=== PATIENT | male | born 1955 | race Caucasian/White ===

== ENCOUNTER 2017-08-15 15:50 | Inpatient (IN) | payer BC ==
[~2017-08-15] VITALS: Ht 175.3 cm; Wt 105.9 kg
[2017-08-15] MEDS ORDERED: MoRPHine SULFATE 4 MG/ML 1 ML CARP\\VIAL IV STA (15:59)
[2017-08-15] MEDS ORDERED: NITROGLYCERIN OINT 2% 1GM PACKET EXT STA (15:59)
[2017-08-15] MEDS ORDERED: ASPI325T39 PO (16:10)
--- NOTE | 2017-08-15 16:31 | DIAGNOSTIC IMAGING REPORT ---
CHEST ONE VIEW PORTABLE CLINICAL HISTORY: chest pain dyspnea COMPARISON STUDY: 08/26/2013 FINDINGS: Minimal interstitial infiltrate left base. Lungs otherwise are clear. Diaphragms are smooth. Calcific angles are sharp. IMPRESSION: Minimal interstitial infiltrate left base. The above report was generated using voice recognition software. It may contain grammatical, syntax or spelling errors. Electronically signed by: Jamal Conner M.D. 08/15/2017 4:29 PM Dictated Date/Time: 08/15/2017 4:29 PM
--- NOTE | 2017-08-15 16:40 | EMERGENCY ROOM VISIT NOTE ---
History First contact with patient: 15:54 Chief Complaint: NECK PAIN Stated Complaint: NECK PAIN History of Present Illness The patient is a 62 year old male who presents to the Emergency Room via private vehicle accompanied by female with complaints of "neck pain". The patient states that he has pain in the left anterior collarbone/clavicular region. He notes that he will get tingling up into the neck. He states that he has had this for about 2 weeks. He states that he changed his pillow and thought that this could be the reason. 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 He is not able to reproduce it with pressing. He feels it is deeper. There is shortness of breath with this. He states that it was very sharp in nature but is now beginning to subside. He rates the overall pain as a 4/10. He did take more than a full strength aspirin today. Review of Systems A complete 10-point Review of Systems was discussed with the patient, with pertinent positives and negatives listed in the History of Present Illness. All remaining Review of Systems questions can be considered negative unless otherwise specified. Past Medical/Surgical History Knee surgery and pneumonia Family History CVA Social History Smoking Status: Never Smoker Patient is employed and lives locally. Current/Historical Medications Scheduled Aspirin (Aspirin Ec), 650 MG PO BID Physical Exam Vital Signs Date Time Temp Pulse Resp B/P (MAP) Pulse Ox O2 Delivery O2 Flow Rate FiO2 08/15/17 19:27 89 18 115/71 94 Room Air 08/15/17 17:14 91 17 134/75 96 Room Air 08/15/17 17:03 86 08/15/17 16:06 96 Room Air 08/15/17 16:06 96 Room Air 08/15/17 15:52 37.1 99 16 185/109 91 Room Air Physical Exam VITAL SIGNS - Vital signs and nursing notes were reviewed. Stable. Hypertensive. Saturating on room air 91%. GENERAL -62-year-old male appearing his stated age who is in no acute distress. Communicates well with provider and answers questions appropriately. SKIN - Without rashes. No petechial rashes. The skin overlying the left clavicle is unremarkable. No evidence of trauma. HEAD - NC/AT. EYES - Sclera anicteric. EARS - No deformities of external structures noted on gross examination bilaterally. NOSE - Midline and without cyanosis. No epistaxis or purulent drainage noted. MOUTH/OROPHARYNX - Without perioral cyanosis. NECK - no reproducible tenderness with palpation of the left clavicle. LUNGS - Chest wall symmetric without accessory muscle use, intercostals retractions, or central cyanosis. Normal vesicular breath sounds CTA B/L. No wheezes, rales, or rhonchi appreciated. CARDIAC - RRR with S1/S2. No murmur, rubs, or gallops appreciated. ABDOMEN - Abdominal contour normal without pulsations or visible masses. BS normoactive all four quadrants. No tenderness, palpable masses, hepatosplenomegaly, or ascites noted. EXTREMITIES - No clubbing or peripheral cyanosis. No pretibial edema present. Medical Decision & Procedures ER Provider Diagnostic Interpretation: CHEST ONE VIEW PORTABLE CLINICAL HISTORY: chest pain dyspnea COMPARISON STUDY: 08/26/2013 FINDINGS: Minimal interstitial infiltrate left base. Lungs otherwise are clear. Diaphragms are smooth. Calcific angles are sharp. IMPRESSION: Minimal interstitial infiltrate left base. The above report was generated using voice recognition software. It may contain grammatical, syntax or spelling errors. Electronically signed by: Jaaml Conner M.D. 08/15/2017 4:29 PM Dictated Date/Time: 08/15/2017 4:29 PM [~ rep ct add3]] (CHEST FOR PE) ANGIO WITH CT DOSE: HISTORY: Chest pain dyspnea TECHNIQUE: Multiaxial CT images of the chest were performed following the intravenous administration of contrast to evaluate the pulmonary arteries. Maximal intensity projection images were also obtained. A dose lowering technique was utilized adhering to the principles of ALARA. COMPARISON STUDY: 09/03/2013 FINDINGS: Minimal atelectatic change thoracic aorta. Mild aneurysmal dilatation a sending thoracic aorta at 4.3 cm. This is unchanged from the prior study. Study is negative for pulmonary embolus. Small fixed lateral hernia with chronic focal herniation of components of the mesenteric fat through the gastric hiatus. This is unchanged in the prior study and is considered a nonacute finding. IMPRESSION: 1. Study is negative for pulmonary embolus. 2. No evidence for focal infiltrate. 3. Small hiatal hernia with chronic changes at the gastroesophageal junction which have been described previously. The above report was generated using voice recognition software. It may contain grammatical, syntax or spelling errors. Electronically signed by: Jamal Conner M.D. 08/15/2017 6:22 PM Dictated Date/Time: 08/15/2017 6:18 PM NECK ANGIO WITH CONTRAST HISTORY: Pain TECHNIQUE: Multiaxial CT images of the neck were performed following the intravenous administration of contrast to evaluate the major cervical vessels. Maximum intensity projection images were also obtained. All measurements were calculated based on NASCET criteria. A dose lowering technique was utilized adhering to the principles of ALARA. COMPARISON STUDY: None. FINDINGS: The aortic arch and proximal great vessels are widely patent. Moderate atherosclerotic change of the carotid bifurcations and proximal internal carotid arteries. This measures narrowing is approximately 40% bilaterally. No significant stenotic process of the vertebral basilar system. His note is made of considerable degenerative change of the cervical spine. IMPRESSION: 1. Moderate atherosclerotic change of the carotid bifurcations with estimated narrowing of 40% bilaterally. 2. No high-grade stenotic process. 3. Negative vertebral basilar system. 4. Considerable degenerative change cervical spine. The above report was generated using voice recognition software. It may contain grammatical, syntax or spelling errors. Electronically signed by: Jamal Conner M.D. 08/15/2017 6:17 PM Dictated Date/Time: 08/15/2017 6:15 PM Laboratory Results 08/15/17 16:45 Red Blood Count 5.87, Mean Corpuscular Volume 90.5, Mean Corpuscular Hemoglobin 31.3, Mean Corpuscular Hemoglobin Concent 34.7, Mean Platelet Volume 10.1, Neutrophils (%) (Auto) 64.2, Lymphocytes (%) (Auto) 25.1, Monocytes (%) (Auto) 6.8, Eosinophils (%) (Auto) 2.8, Basophils (%) (Auto) 0.2, Neutrophils # (Auto) 5.21, Lymphocytes # (Auto) 2.04, Monocytes # (Auto) 0.55, Eosinophils # (Auto) 0.23, Basophils # (Auto) 0.02 08/15/17 16:45 Test 08/15/17 16:45 08/15/17 16:53 08/15/17 18:38 White Blood Count 8.12 K/uL (4.8-10.8) Red Blood Count 5.87 M/uL (4.7-6.1) Hemoglobin 18.4 g/dL (14.0-18.0) Hematocrit 53.1 % (42-52) Mean Corpuscular Volume 90.5 fL (80-100) Mean Corpuscular Hemoglobin 31.3 pg (25-34) Mean Corpuscular Hemoglobin Concent 34.7 g/dl (32-36) Platelet Count 267 K/uL (130-400) Mean Platelet Volume 10.1 fL (7.4-10.4) Neutrophils (%) (Auto) 64.2 % Lymphocytes (%) (Auto) 25.1 % Monocytes (%) (Auto) 6.8 % Eosinophils (%) (Auto) 2.8 % Basophils (%) (Auto) 0.2 % Neutrophils # (Auto) 5.21 K/uL (1.4-6.5) Lymphocytes # (Auto) 2.04 K/uL (1.2-3.4) Monocytes # (Auto) 0.55 K/uL (0.11-0.59) Eosinophils # (Auto) 0.23 K/uL (0-0.5) Basophils # (Auto) 0.02 K/uL (0-0.2) RDW Standard Deviation 44.2 fL (36.4-46.3) RDW Coefficient of Variation 13.4 % (11.5-14.5) Immature Granulocyte % (Auto) 0.9 % Immature Granulocyte # (Auto) 0.07 K/uL (0.00-0.02) Anion Gap 10.0 mmol/L (3-11) Est Creatinine Clear Calc Drug Dose 83.7 ml/min Estimated GFR () 81.7 Estimated GFR (Non- 70.5 BUN/Creatinine Ratio 17.7 (10-20) Calcium Level 9.2 mg/dl (8.5-10.1) Magnesium Level 2.1 mg/dl (1.8-2.4) Total Bilirubin 0.6 mg/dl (0.2-1) Aspartate Amino Transf (AST/SGOT) 26 U/L (15-37) Alanine Aminotransferase (ALT/SGPT) 37 U/L (12-78) Alkaline Phosphatase 70 U/L (45-117) Total Creatine Kinase 132 U/L (39-308) Creatine Kinase MB 1.3 ng/ml (0.5-3.6) Creatine Kinase MB Ratio 1.0 (0-3.0) Total Protein 8.3 gm/dl (6.4-8.2) Albumin 4.4 gm/dl (3.4-5.0) Globulin 3.9 gm/dl (2.5-4.0) Albumin/Globulin Ratio 1.1 (0.9-2) Lyme Disease IgG Antibody NEG (NEG) Lyme Disease IgM Antibody NEG (NEG) Bedside Troponin I 0.040 ng/ml (0-0.045) Prothrombin Time 10.3 SECONDS (9.0-12.0) Prothromb Time International Ratio 1.0 (0.9-1.1) Activated Partial Thromboplast Time 26.9 SECONDS (21.0-31.0) Partial Thromboplastin Ratio 1.0 Troponin I 0.066 ng/ml (0-0.045) Medications Administered Medications (Trade) Dose Ordered Sig/Comfort Route Start Time Stop Time Status Last Admin Dose Admin Morphine Sulfate (MoRPHine SULFATE INJ) 4 mg NOW STAT IV 08/15/17 15:59 08/15/17 16:02 DC 08/15/17 17:14 4 MG Nitroglycerin (Nitroglycerin 2% Oint) 0.5 inch NOW STAT EXT 08/15/17 15:59 08/15/17 16:02 DC 08/15/17 16:45 0.5 INCH Medical Decision Patient was seen and evaluated as above. He presents to us today with left clavicular pain after exerting himself. It was not during exertion but afterwards he developed the pain. EKG NSR, RBBB, ?abnormality in leads v4 and v5. This may be from RBBB. Repeat slightly improved. I question if this is unstable angina. IV access was initiated, and the above workup was performed. Initial troponin came back elevated in the lab, but the POC was normal. Repeat lab (not Point of care) troponin came down slightly but given the patient's amount of subjective risk factors as well as clinical concern he was given nitroglycerin as well as morphine here upon arrival. He had the aspirin prior to coming here. CT scan was performed of the neck and chest given his presentation. This does not reveal any acute process. The chest x-ray initially perhaps reveal pneumonia but I do not believe this to be the case. This was ruled out via the chest CT. CBC reveals no concern leukocytosis. Hemoglobin elevated at 18.4. Coags normal. Metabolic panel reveals no evidence of kidney or liver failure. He does appear to be dehydrated based upon his BUN and creatinine. Lyme negative. Case was discussed with the attending physician. He will be admitted for further evaluation and management. Please refer to further documentation regarding his stay. In evaluation treatment this patient following differential diagnoses were entertained: AK, PE, pericarditis, costochondritis, exertional stable angina, unstable angina, among others. Impression Primary Impression: Chest pain Additional Impression: Unstable angina Departure Information Dispostion Admitted as an inpatient Condition FAIR Referrals Jorge Alberto White M.D. (PCP) Patient Instructions My [facility] Problem Qualifiers
[2017-08-15 17:13] LABS: ALBUMIN 4.4 gm/dl (3.4-5.0); CALCIUM 9.2 mg/dl (8.5-10.1); CREATININE 1.12 mg/dl (0.60-1.40); POTASSIUM 3.6 mmol/L (3.5-5.1)
[2017-08-15 17:16] LABS: BASO % 0.2 %; BASO ABS # 0.02 K/uL (0-0.2); EOS % 2.8 %; EOS ABS # 0.23 K/uL (0-0.5); HEMATOCRIT 53.1 % (42-52); HEMOGLOBIN 18.4 g/dL (14.0-18.0); IG# 0.07 K/uL (0.00-0.02); LYMPH % 25.1 %; LYMPH ABS # 2.04 K/uL (1.2-3.4); MEAN CELL VOLUME 90.5 fL (80-100); MEAN CORPUSCULAR HEMOGLOBIN 31.3 pg (25-34); MEAN CORPUSCULAR HGB CONC 34.7 g/dl (32-36); MEAN PLATELET VOLUME 10.1 fL (7.4-10.4); MONO % 6.8 %; MONO ABS # 0.55 K/uL (0.11-0.59); NEUT % 64.2 %; NEUT ABS # 5.21 K/uL (1.4-6.5); PLATELET COUNT 267 K/uL (130-400); RED CELL DISTRIBUTION WIDTH CV 13.4 % (11.5-14.5); RED CELL DISTRIBUTION WIDTH SD 44.2 fL (36.4-46.3); WHITE BLOOD COUNT 8.12 K/uL (4.8-10.8)
[2017-08-15 17:20] LABS: CKMB 1.3 ng/ml (0.5-3.6); TOTAL PROTEIN 8.3 gm/dl (6.4-8.2)
[2017-08-15] MEDS ORDERED: OPTIRAY 320 IV PRN (17:30)
--- NOTE | 2017-08-15 18:18 | DIAGNOSTIC IMAGING REPORT ---
NECK ANGIO WITH CONTRAST HISTORY: Pain TECHNIQUE: Multiaxial CT images of the neck were performed following the intravenous administration of contrast to evaluate the major cervical vessels. Maximum intensity projection images were also obtained. All measurements were calculated based on NASCET criteria. A dose lowering technique was utilized adhering to the principles of ALARA. COMPARISON STUDY: None. FINDINGS: The aortic arch and proximal great vessels are widely patent. Moderate atherosclerotic change of the carotid bifurcations and proximal internal carotid arteries. This measures narrowing is approximately 40% bilaterally. No significant stenotic process of the vertebral basilar system. His note is made of considerable degenerative change of the cervical spine. IMPRESSION: 1. Moderate atherosclerotic change of the carotid bifurcations with estimated narrowing of 40% bilaterally. 2. No high-grade stenotic process. 3. Negative vertebral basilar system. 4. Considerable degenerative change cervical spine. The above report was generated using voice recognition software. It may contain grammatical, syntax or spelling errors. Electronically signed by: Jamal Conner M.D. 08/15/2017 6:17 PM Dictated Date/Time: 08/15/2017 6:15 PM
--- NOTE | 2017-08-15 18:24 | DIAGNOSTIC IMAGING REPORT ---
(CHEST FOR PE) ANGIO WITH CT DOSE: HISTORY: Chest pain dyspnea TECHNIQUE: Multiaxial CT images of the chest were performed following the intravenous administration of contrast to evaluate the pulmonary arteries. Maximal intensity projection images were also obtained. A dose lowering technique was utilized adhering to the principles of ALARA. COMPARISON STUDY: 09/03/2013 FINDINGS: Minimal atelectatic change thoracic aorta. Mild aneurysmal dilatation a sending thoracic aorta at 4.3 cm. This is unchanged from the prior study. Study is negative for pulmonary embolus. Small fixed lateral hernia with chronic focal herniation of components of the mesenteric fat through the gastric hiatus. This is unchanged in the prior study and is considered a nonacute finding. IMPRESSION: 1. Study is negative for pulmonary embolus. 2. No evidence for focal infiltrate. 3. Small hiatal hernia with chronic changes at the gastroesophageal junction which have been described previously. The above report was generated using voice recognition software. It may contain grammatical, syntax or spelling errors. Electronically signed by: Jamal Conner M.D. 08/15/2017 6:22 PM Dictated Date/Time: 08/15/2017 6:18 PM
[2017-08-15 19:10] LABS: PTT PATIENT 26.9 SECONDS (21.0-31.0)
[2017-08-15] MEDS ORDERED: MAGNESIUM HYDROXIDE SUSP 30 ML UDC PO PRN (20:30)
[2017-08-15] MEDS ORDERED: ONDANSETRON INJ 2 MG/ML 2 ML VIAL IV PRN (20:30)
[2017-08-15] MEDS ORDERED: POLYETHYLENE (MIRALAX) 17 GM PACK PO PRN (20:30)
[2017-08-15] MEDS ORDERED: ACETAMINOPHEN 325 MG TAB PO PRN (20:30)
[2017-08-15] MEDS ORDERED: ALUMINUM/MAGNESIUM/SIMETH (MAALOX MAX) 30 ML UDC PO PRN (20:30)
[2017-08-15] MEDS ORDERED: HEPARIN IV LOW DOSE NO BOLUS SCH (20:39)
--- NOTE | 2017-08-15 21:06 | History and Physical ---
History & Physical Date & Time of Service: Aug 15, 2017 at 20:45 Chief Complaint: Neck Pain Primary Care Physician: Jorge Alberto White M.D. History of Present Illness Source: patient, family This is a 62 yo previously healthy Male presenting with Left sided Chest pain ( underneath clavicle) radiating to Left neck x several weeks. Chest Pain is located beneath the L Clavicle and is intermittent, sharp typically lasting a few minutes, sometimes triggered on exertion, sometimes from rest. 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 The pain lasted a couple hrs.He took aspirin around 3:[address] himself to hospital. He has had no previous similar symptoms or localized injury. Pain is non-pleuritic and also reports SOB, presyncope ( now improved) He also tingling in the left cheek, neck region. Pt denies fevers,nausea, vomiting, diarrhea. He denies h/o HTN, Diabetes, HLD. He chews tobacco. He is no on any medication regularly at home. In the ED, he arrived afebrile normotensive, saturating well on room air.EkG NSR, RBBB . He got morphine, nitro. Chest pain resolved in ED. POC Troponin was .04, serum Troponin was mildly elevated at .066. CXR was unremarkable other than small hiatal hernia. CT Chest neg for PE. CTA neck Moderate atherosclerotic change of the carotid bifurcations with estimated narrowing of 40% bilaterally. Past Medical/Surgical History Unstable Angina Family History Noncontributory Social History Smoking Status: Never Smoker Smokeless Tobacco Use: Yes Alcohol Use: none Drug Use: none Marital Status: Housing status: lives with family Occupational Status: employed Immunizations History of Influenza Vaccine: Unknown History of Tetanus Vaccine?: Unknown History of Pneumococcal: Unknown History of Hepatitis B Vaccine: Unknown Multi-Drug Resistant Organisms History of MDRO: No Allergies Coded Allergies: No Known Allergies (Unverified , 08/15/17) Home Medications Scheduled Aspirin (Aspirin Ec), 650 MG PO BID Review of Systems Constitutional: No fever, No chills, No weakness Respiratory: + shortness of breath, No cough, No wheezing Cardiovascular: + chest pain, No orthopnea, No PND, No edema, No palpitations Abdomen: No pain, No nausea, No vomiting, No diarrhea Musculoskeletal: No swelling, No calf pain Integumentary: No rash, No itch Physical Exam Vital Signs Date Time Temp Pulse Resp B/P (MAP) Pulse Ox O2 Delivery O2 Flow Rate FiO2 08/15/17 19:27 89 18 115/71 94 Room Air 08/15/17 17:14 91 17 134/75 96 Room Air 08/15/17 17:03 86 08/15/17 16:06 96 Room Air 08/15/17 16:06 96 Room Air 08/15/17 15:52 37.1 99 16 185/109 91 Room Air General Appearance: WD/WN, no apparent distress Head: normocephalic, atraumatic Neck: supple, no carotid bruits, trachea midline Respiratory/Chest: chest non-tender, lungs clear, normal breath sounds Cardiovascular: regular rate, rhythm, no edema, no murmur Abdomen/GI: normal bowel sounds, non tender, soft Extremities/Musculoskelatal: no calf tenderness, no pedal edema Neurologic/Psych: alert, normal mood/affect Skin: normal color, warm/dry Diagnostics Laboratory Results Results Past 24 Hours Test 08/15/17 16:45 08/15/17 16:53 08/15/17 18:38 Range/Units White Blood Count 8.12 4.8-10.8 K/uL Red Blood Count 5.87 4.7-6.1 M/uL Hemoglobin 18.4 14.0-18.0 g/dL Hematocrit 53.1 42-52 % Mean Corpuscular Volume 90.5 80-100 fL Mean Corpuscular Hemoglobin 31.3 25-34 pg Mean Corpuscular Hemoglobin Concent 34.7 32-36 g/dl Platelet Count 267 130-400 K/uL Mean Platelet Volume 10.1 7.4-10.4 fL Neutrophils (%) (Auto) 64.2 % Lymphocytes (%) (Auto) 25.1 % Monocytes (%) (Auto) 6.8 % Eosinophils (%) (Auto) 2.8 % Basophils (%) (Auto) 0.2 % Neutrophils # (Auto) 5.21 1.4-6.5 K/uL Lymphocytes # (Auto) 2.04 1.2-3.4 K/uL Monocytes # (Auto) 0.55 0.11-0.59 K/uL Eosinophils # (Auto) 0.23 0-0.5 K/uL Basophils # (Auto) 0.02 0-0.2 K/uL RDW Standard Deviation 44.2 36.4-46.3 fL RDW Coefficient of Variation 13.4 11.5-14.5 % Immature Granulocyte % (Auto) 0.9 % Immature Granulocyte # (Auto) 0.07 0.00-0.02 K/uL Sodium Level 140 136-145 mmol/L Potassium Level 3.6 3.5-5.1 mmol/L Chloride Level 106 98-107 mmol/L Carbon Dioxide Level 24 21-32 mmol/L Anion Gap 10.0 3-11 mmol/L Blood Urea Nitrogen 20 7-18 mg/dl Creatinine 1.12 0.60-1.40 mg/dl Est Creatinine Clear Calc Drug Dose 83.7 ml/min Estimated GFR () 81.7 Estimated GFR (Non- 70.5 BUN/Creatinine Ratio 17.7 10-20 Random Glucose 106 70-99 mg/dl Calcium Level 9.2 8.5-10.1 mg/dl Magnesium Level 2.1 1.8-2.4 mg/dl Total Bilirubin 0.6 0.2-1 mg/dl Aspartate Amino Transf (AST/SGOT) 26 15-37 U/L Alanine Aminotransferase (ALT/SGPT) 37 12-78 U/L Alkaline Phosphatase 70 45-117 U/L Total Creatine Kinase 132 39-308 U/L Creatine Kinase MB 1.3 0.5-3.6 ng/ml Creatine Kinase MB Ratio 1.0 0-3.0 Troponin I 0.083 0.066 0-0.045 ng/ml Total Protein 8.3 6.4-8.2 gm/dl Albumin 4.4 3.4-5.0 gm/dl Globulin 3.9 2.5-4.0 gm/dl Albumin/Globulin Ratio 1.1 0.9-2 Lyme Disease IgG Antibody NEG NEG Lyme Disease IgM Antibody NEG NEG Bedside Troponin I 0.040 0-0.045 ng/ml Prothrombin Time 10.3 9.0-12.0 SECONDS Prothromb Time International Ratio 1.0 0.9-1.1 Activated Partial Thromboplast Time 26.9 21.0-31.0 SECONDS Partial Thromboplastin Ratio 1.0 Diagnostic Radiology Imaging: CHEST ONE VIEW PORTABLE CLINICAL HISTORY: chest pain dyspnea COMPARISON STUDY: 08/26/2013 FINDINGS: Minimal interstitial infiltrate left base. Lungs otherwise are clear. Diaphragms are smooth. Calcific angles are sharp. IMPRESSION: Minimal interstitial infiltrate left base. (CHEST FOR PE) ANGIO WITH CT DOSE: HISTORY: Chest pain dyspnea TECHNIQUE: Multiaxial CT images of the chest were performed following the intravenous administration of contrast to evaluate the pulmonary arteries. Maximal intensity projection images were also obtained. A dose lowering technique was utilized adhering to the principles of ALARA. COMPARISON STUDY: 09/03/2013 FINDINGS: Minimal atelectatic change thoracic aorta. Mild aneurysmal dilatation a sending thoracic aorta at 4.3 cm. This is unchanged from the prior study. Study is negative for pulmonary embolus. Small fixed lateral hernia with chronic focal herniation of components of the mesenteric fat through the gastric hiatus. This is unchanged in the prior study and is considered a nonacute finding. IMPRESSION: 1. Study is negative for pulmonary embolus. 2. No evidence for focal infiltrate. 3. Small hiatal hernia with chronic changes at the gastroesophageal junction which have been described previously. NECK ANGIO WITH CONTRAST HISTORY: Pain TECHNIQUE: Multiaxial CT images of the neck were performed following the intravenous administration of contrast to evaluate the major cervical vessels. Maximum intensity projection images were also obtained. All measurements were calculated based on NASCET criteria. A dose lowering technique was utilized adhering to the principles of ALARA. COMPARISON STUDY: None. FINDINGS: The aortic arch and proximal great vessels are widely patent. Moderate atherosclerotic change of the carotid bifurcations and proximal internal carotid arteries. This measures narrowing is approximately 40% bilaterally. No significant stenotic process of the vertebral basilar system. His note is made of considerable degenerative change of the cervical spine. IMPRESSION: 1. Moderate atherosclerotic change of the carotid bifurcations with estimated narrowing of 40% bilaterally. 2. No high-grade stenotic process. 3. Negative vertebral basilar system. 4. Considerable degenerative change cervical spine. CXR normal EKG NSR RBBB No prior EKG available Impression Assessment and Plan 62 yo previously healthy M w/ h/o of intermittent nonexertional Chest pain ov a several weeks, presenting with acute worsening of Chest pain , cxr unremarkable , mildly elevated Troponin , trending down. Chest Pain: likely secondary to unstable angina * Admit to Telemetry * currently asx, stable * EKG NSR * Initaly Troponins elevated but trending down (.083-->.066) ,Trend Troponins * CXR: Minimal interstitial infiltrate left base. * CTA: Study is negative for pulmonary embolus. * Started IV Heparin Drip * ASA 81 mg daily * Cardiology consulted * NPO after midnight incase of cath in AM Carotid Stenosis * CTA neck: Moderate atherosclerotic change of the carotid bifurcations with estimated narrowing of 40% bilaterally. No high-grade stenotic process. DVT Prophylaxis: Heparin Attending addendum: I have physically seen this patient, have supervised the medical residents activities, and agree with the H&P unless as otherwise noted. Assessment and Plan: Chest pain/Unstable angina-- The patient will be admitted to telemetry for serial cardiac enzymes, cardiac rhythm monitoring and a 2-D echocardiogram with Dopplers. Continue aspirin Start heparin drip standard concentration with bolus per protocol Consult cardiology Nothing by mouth after midnight Carotid stenosis-- 40% narrowing noted bilaterally on CTA Will need serial testing Target LDL cholesterol less than 70 Check a fasting lipid panel and hemoglobin A1c Level of Care Telemetry Advanced Directives Existing Advance Directive: No Existing Living Will: No Existing Power of Automobile Travel Club Counselor: No Resuscitation Status FULL RESUSCITATION VTE Prophylaxis VTE Risk Assessment Done? Y/N: Yes Risk Level: Moderate Given or contraindicated: Other Anticoagulation (IV Heparin Standard), SCD's Social Service Consult None Apply
[2017-08-15] MEDS ORDERED: HEPARIN 25000 UNIT/500 ML D5W ONE (21:24)
[2017-08-15 21:45] VITALS: BP 127/81; PULSE 69; TEMP 36.4; O2SAT 95; Ht 175.3 cm; Wt 105.9 kg
--- NOTE | 2017-08-15 21:45 | NUR ---
A/ID: PT ARRIVED TO UNIT AROUND THIS TIME AND SETTLED BY PRIMARY RN. ASSESSMENT COMPLETED SEE DOCUMENTATION FOR DETAILS. GOWN CHANGED, MONITOR APPLIED, WEIGHT, AND VITAL SIGNS TAKEN. PT ORIENTED TO ROOM, CALL [facility], LIGHTS, BED CONTROLS, AND UNIT ACTIVITIES. GREEN SOCKS INTACT. CODE WORD AND FALL SHEET INTACT. CALL [facility] WITHIN REACH. PENDING DISCHARGE. CARE ASSUMED BY PRIMARY RN.
--- NOTE | 2017-08-15 22:05 | NUR ---
Messaged Dr. Barajas on [id number] requesting a diet order.
--- NOTE | 2017-08-15 22:40 | NUR ---
No response from Dr. Barajas. Paged, orders received. Called drying frame operator for dinner tray. To be NPO at midnight.
[2017-08-15] MEDS ORDERED: INFLUENZA VIRUS QUAD VACCINE 0.5 ML SYR IM. ONE (22:45)
[2017-08-15] MEDS ORDERED: INFLUENZA ADMINISTRATION CHARGE ONE (22:45)
[2017-08-15 23:08] VITALS: BP 123/76; PULSE 72; TEMP 36.9; O2SAT 96
--- NOTE | 2017-08-16 00:01 | NUR ---
a: Reassessment completed at this time. 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 Denies chest pain. Tolerated dinner tray, now NPO for Cardiology consult. Patient denies needs. Refer to EMR for full assessment details. Call zamora and bedside table are within reach. Will continue to monitor patient closely.
[2017-08-16 03:50] LABS: HEMATOCRIT 46.7 % (42-52); HEMOGLOBIN 15.9 g/dL (14.0-18.0); MEAN CELL VOLUME 92.5 fL (80-100); MEAN CORPUSCULAR HEMOGLOBIN 31.5 pg (25-34); MEAN PLATELET VOLUME 9.6 fL (7.4-10.4); PLATELET COUNT 220 K/uL (130-400); RED CELL DISTRIBUTION WIDTH CV 13.9 % (11.5-14.5); RED CELL DISTRIBUTION WIDTH SD 46.4 fL (36.4-46.3); WHITE BLOOD COUNT 9.57 K/uL (4.8-10.8)
[2017-08-16 03:59] LABS: PTT PATIENT 28.7 SECONDS (21.0-31.0)
--- NOTE | 2017-08-16 04:00 | NUR ---
a: Reassessment completed at this time. 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 Patient denies chest pain or shortness of breath. IV Heparin infusing per protocol. Denies any pain. No complaints at present time. Voiding in urinal without complications at this time. Refer to EMR for full assessment details. Call zamora and bedside table are within reach. Will continue to monitor patient closely.
[2017-08-16 04:10] VITALS: BP 128/77; PULSE 70; TEMP 36.6; O2SAT 95
[2017-08-16] MEDS ORDERED: HEPARIN IV BOLUS 4,500 UNIT in SYRINGE 0 ML IV ONE ×3 (04:45→19:45)
[2017-08-16] MEDS: HEPARIN 25,000 UNIT/500ML D5W 500 ML IV PRN ×3 (04:54→20:28)
[2017-08-16 07:39] VITALS: BP 136/75; PULSE 68; TEMP 36.5; O2SAT 96
--- NOTE | 2017-08-16 08:00 | NUR ---
A:id/ pt alert in bed. upset because of NPO status denies further complaints. assessment completed. call zamora in reach will cont to monitor.
[2017-08-16 10:11] LABS: HEMOGLOBIN A1C 5.4 % (4.5-5.6)
--- NOTE | 2017-08-16 10:25 | Cardiology Consultation ---
Cardiology Consultation Date of Consultation: Aug 16, 2017. Requesting Physician: Jenn Reason for Consultation: Chest pain Pt evaluation today including: conversation w/ patient, physical exam, chart review, lab review, review of studies, review of inpatient medication list, conversation w/ attending History of Present Illness Patient is a 62-year-old gentleman without a known history of cardiac disease who has been experiencing episodes of left sternoclavicular pain. Patient states that approximately 2-3 weeks ago he began to have episodes of a sharp stabbing pain which was well localized to the left clavicle close to the sternoclavicular joint. This discomfort was not reliably brought about by any particular activity. Most of the time the discomfort started at rest. The episodes themselves can last several minutes to half an hour. It is occasionally associated with some pain on the left side of the neck as well. It did not appear to be positional. No specific remedy resulted in improvement. Based on the recurrent nature of this symptom the patient contacted the clinic yesterday was advised to go to the emergency room. He cannot recall any particular intervention which relieved his symptom yesterday. Yesterday's episode lasted nearly 1 hour. He does not have associated dyspnea. He has not have associated dizziness although yesterday driving to the emergency room he did feel somewhat lightheaded. He is not aware of any palpitations. He is not describing orthopnea or paroxysmal nocturnal dyspnea. He he is not aware of any lower extremity edema. 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 He has been continuing his usual activity without new symptoms. He does not generally have this symptom of clavicular discomfort with activity. Yesterday he was able work for several hours before returning to his home. The discomfort started at that time, not while active. Past Medical/Surgical History Allergic rhinitis Asthma Hiatal hernia Thoracic aortic aneurysm Past surgical history: Knee surgery Family History No premature coronary disease Social History Smoking Status: Never Smoker History of Alcohol Use: Yes (social) Patient drinks alcohol occasionally. No history of heavy alcohol use. He uses smokeless tobacco. No history of smoking. 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 All Other Systems: Reviewed and Negative Allergies Coded Allergies: No Known Allergies (Unverified , 08/15/17) Medications Current Inpatient Medications Medications (Trade) Dose Ordered Sig/Comfort Route Start Time Stop Time Status Last Admin Dose Admin Ioversol (Optiray 320) 111 ml UD PRN IV 08/15/17 17:30 08/19/17 17:29 Acetaminophen (Tylenol Tab) 650 mg Q4H PRN PO 08/15/17 20:30 09/14/17 20:29 Al Hydrox/Mg Hydrox/Simethicone (Maalox Max Susp) 15 ml Q4H PRN PO 08/15/17 20:30 09/14/17 20:29 Magnesium Hydroxide (Milk Of Magnesia Susp) 30 ml Q12H PRN PO 08/15/17 20:30 09/14/17 20:29 Ondansetron HCl (Zofran Inj) 4 mg Q6H PRN IV 08/15/17 20:30 09/14/17 20:29 Aspirin (Ecotrin Tab) 81 mg QAM PO 08/16/17 09:00 09/15/17 08:59 Polyethylene (Miralax Powder Packet) 17 gm DAILY PRN PO 08/15/17 20:30 09/14/17 20:29 Heparin Sodium/ Dextrose 500 ml @ 23 mls/hr [id number] PRN IV 08/15/17 22:15 09/14/17 22:14 08/16/17 04:54 23 MLS/HR Physical Exam Vital Signs Past 12 Hours Date Time Temp Pulse Resp B/P (MAP) Pulse Ox O2 Delivery O2 Flow Rate FiO2 08/16/17 08:00 Room Air 08/16/17 07:39 36.5 68 18 136/75 (95) 96 Room Air 08/16/17 04:10 36.6 70 18 128/77 (94) 95 Room Air 08/16/17 04:00 Room Air 08/15/17 23:59 Room Air 08/15/17 23:08 36.9 72 18 123/76 (92) 96 Room Air The patient is alert and oriented. Mood and affect appeared normal. He answered all questions appropriately. HEENT: Pupils are equal and reactive to light and accommodation. Extraocular movements are intact. The sclerae are anicteric. Neuro: Cranial nerves intact Neck: Patient's neck is supple. He has palpable carotid pulses bilaterally without bruits on auscultation. There is no evidence of jugular venous distention. The thyroid is not enlarged. Lungs: Clear to auscultation bilaterally. He has good air movement without use of accessory muscles. No rales wheezes or rhonchi. Cardiac: Heart demonstrates a regular rate and rhythm. Normal S1 and S2. No murmurs on examination. Pulses: The patient has palpable radial pulses bilaterally that are equal in intensity Extremities: There was no evidence of hypoperfusion. There is no cyanosis or clubbing. There is no edema. Skin: I did not appreciate any rashes on examination today. Data Laboratory Results: Last 24 Hours Test 08/15/17 16:45 08/15/17 16:53 08/15/17 18:38 08/16/17 03:30 White Blood Count 8.12 K/uL 9.57 K/uL Red Blood Count 5.87 M/uL 5.05 M/uL Hemoglobin 18.4 g/dL 15.9 g/dL Hematocrit 53.1 % 46.7 % Mean Corpuscular Volume 90.5 fL 92.5 fL Mean Corpuscular Hemoglobin 31.3 pg 31.5 pg Mean Corpuscular Hemoglobin Concent 34.7 g/dl 34.0 g/dl Platelet Count 267 K/uL 220 K/uL Mean Platelet Volume 10.1 fL 9.6 fL Neutrophils (%) (Auto) 64.2 % Lymphocytes (%) (Auto) 25.1 % Monocytes (%) (Auto) 6.8 % Eosinophils (%) (Auto) 2.8 % Basophils (%) (Auto) 0.2 % Neutrophils # (Auto) 5.21 K/uL Lymphocytes # (Auto) 2.04 K/uL Monocytes # (Auto) 0.55 K/uL Eosinophils # (Auto) 0.23 K/uL Basophils # (Auto) 0.02 K/uL RDW Standard Deviation 44.2 fL 46.4 fL RDW Coefficient of Variation 13.4 % 13.9 % Immature Granulocyte % (Auto) 0.9 % Immature Granulocyte # (Auto) 0.07 K/uL Sodium Level 140 mmol/L Potassium Level 3.6 mmol/L Chloride Level 106 mmol/L Carbon Dioxide Level 24 mmol/L Anion Gap 10.0 mmol/L Blood Urea Nitrogen 20 mg/dl Creatinine 1.12 mg/dl Est Creatinine Clear Calc Drug Dose 83.7 ml/min Estimated GFR () 81.7 Estimated GFR (Non- 70.5 BUN/Creatinine Ratio 17.7 Random Glucose 106 mg/dl Calcium Level 9.2 mg/dl Magnesium Level 2.1 mg/dl Total Bilirubin 0.6 mg/dl Aspartate Amino Transf (AST/SGOT) 26 U/L Alanine Aminotransferase (ALT/SGPT) 37 U/L Alkaline Phosphatase 70 U/L Total Creatine Kinase 132 U/L Creatine Kinase MB 1.3 ng/ml Creatine Kinase MB Ratio 1.0 Troponin I 0.083 ng/ml 0.066 ng/ml Total Protein 8.3 gm/dl Albumin 4.4 gm/dl Globulin 3.9 gm/dl Albumin/Globulin Ratio 1.1 Lyme Disease IgG Antibody NEG Lyme Disease IgM Antibody NEG Bedside Troponin I 0.040 ng/ml Prothrombin Time 10.3 SECONDS Prothromb Time International Ratio 1.0 Activated Partial Thromboplast Time 26.9 SECONDS 28.7 SECONDS Partial Thromboplastin Ratio 1.0 1.1 Hepatitis C Antibody Screen NEG Test 08/16/17 05:34 Estimated Average Glucose 108 mg/dl Hemoglobin A1c 5.4 % Troponin I 0.067 ng/ml Triglycerides Level 104 mg/dl Cholesterol Level 170 mg/dl HDL Cholesterol 28 mg/dl LDL Cholesterol, Calculated 121 mg/dl VLDL Cholesterol, Calculated 21 mg/dl Cholesterol/HDL Ratio 6.1 Imaging: Chest x-ray was essentially unremarkable. CT PE protocol did not reveal any evidence of pulmonary embolus. Head CTA revealed 40 percent stenosis of the carotids bilaterally. EKG: Normal sinus rhythm with right bundle branch block and left atrial enlargement Telemetry reviewed: No significant arrhythmia Assessment & Plan 1. Atypical chest pain: I would not characterize the patient's symptom as chest pain. It is a very focal discomfort at the sternoclavicular junction on the left side. It does not appear to be reproducible with palpation. Is not associated with any particular movement of the arm or specific activity. There is no significant radiation to the arm or back. He did have some paresthesias involving the left side of the face but these are not reliably associated with the clavicular pain. He can perform a good deal of activity without any symptoms consistent with angina or coronary insufficiency. He has not report chest pain or limiting dyspnea with activity. It is unclear why he has mild elevation in his cardiac biomarkers. He does likely have an element of coronary disease based on his carotid disease and history of coronary calcifications on CT scan performed in 2013. However I do not believe he is likely to have had an acute coronary syndrome recently. His presenting symptoms are clearly not consistent with that diagnosis., I think it is reasonable to continue trending his biomarkers over the course of the evening. Will continue the heparin infusion for the time being. If he has no additional elevations or symptoms we could consider stress testing tomorrow for risk stratification and likely discharged afterwards provided those results are encouraging. 2. Aortic aneurysm: Patient was reported to have dilation of the thoracic aorta in 2013. That time measured 4.2 centimeters. I do not believe they could get an accurate measurement on the CT scan performed last night as it was not gated for the thoracic aorta. This could be followed up in the outpatient setting. 3. Lipids: Patient's lipid profile in addition to his other cardiac risk factors suggest an estimated 10 year risk over 7.5 percent (calculated at 12.4 percent). This would put him in a category of patients would likely benefit from long-term moderate to high intensity statin therapy. I think with his known carotid disease and coronary calcifications he is also a good candidate for statin therapy.
[2017-08-16] MEDS: ASPIRIN 81 MG ECTAB PO SCH (10:35)
--- NOTE | 2017-08-16 10:46 | ECHOCARDIOGRAM REPORT ---
*NOTICE TO RECEIVING [employer] This information is strictly Confidential and protected under [place] law. [place] law prohibits you from making any further disclosure of this information unless further disclosure is expressly permitted by the written consent of the person to whom it pertains or is authorized by law. A general authorization for the release of medical or other information is not sufficient for this purpose. Hospital accepts no responsibility if the information is made available to any other person, INCLUDING THE PATIENT. Interpretation Summary * Name: VASU DIAL Study Date: 08/16/2017 07:48 AM BP: 128/77 mmHg * Patient Location: C.2T\S\S240\S\2 HR: 70 * : 1955 (M/d/yyyy) Gender: Male Height: 68 in * Age: 62 yrs Ethnicity: CA Weight: 240 lb * Ordering Physician: Jnoa Barajas * Referring Physician: Self, Referred * Performed By: Donya Gamez RCS * * Reason For Study: Chest Pain * BSA: 2.2 m2 * -- Conclusions -- * Left ventricular systolic function is normal. * Diastolic dysfunction, Grade II, consistent with elevated left atrial pressure. * The left atrium is mildly dilated. * There is mild mitral annular calcification. * Right ventricular systolic pressure is normal. Procedure Details * A complete two-dimensional transthoracic echocardiogram was performed (2D, M-mode, Doppler and color flow Doppler). Left Ventricle * The left ventricle is normal in size. * There is normal left ventricular wall thickness. * Ejection Fraction = 55-60%. * Left ventricular systolic function is normal. * Diastolic dysfunction, Grade II, consistent with elevated left atrial pressure. * The left ventricular wall motion is normal. Right Ventricle * The right ventricle is grossly normal size. * The right ventricular systolic function is normal. * The right ventricular systolic function is normal as assessed by tricuspid annular plane systolic excursion (TAPSE) (normal >1.5 cm). Atria * The left atrium is mildly dilated. * Right atrial size is normal. Mitral Valve * There is mild mitral annular calcification. * There is no mitral regurgitation noted. Tricuspid Valve * The tricuspid valve is not well visualized, but is grossly normal. * There is trace tricuspid regurgitation. * Right ventricular systolic pressure is normal. Aortic Valve * The aortic valve is normal in structure and function. * The aortic valve is trileaflet. * No hemodynamically significant valvular aortic stenosis. * There is no significant aortic regurgitation. Great Vessels * The aortic root is normal size. Pericardium/Pleural * There is no pericardial effusion. MMode 2D Measurements and Calculations IVSd 1.0 cm IVSs 1.4 cm LVIDd 4.5 cm LVIDs 3.2 cm LVPWd 0.99 cm LVPWs 1.2 cm IVS/LVPW 1.0 FS 28.2 % EDV(Teich) 91.1 ml ESV(Teich) 41.3 ml EF(Teich) 54.6 % EDV(cubed) 89.4 ml ESV(cubed) 33.1 ml EF(cubed) 62.9 % % IVS thick 38.7 % % LVPW thick 24.6 % LV mass(C)d 150.9 grams LV mass(C)dI 68.3 grams/m\S\2 LV mass(C)s 138.4 grams LV mass(C)sI 62.7 grams/m\S\2 SV(Teich) 49.7 ml SI(Teich) 22.5 ml/m\S\2 SV(cubed) 56.3 ml SI(cubed) 25.5 ml/m\S\2 Ao root diam 3.4 cm Ao root area 8.9 cm\S\2 ACS 1.7 cm LA dimension 4.4 cm asc Aorta Diam 4.0 cm LA/Ao 1.3 EDV(MOD-sp4) 119.0 ml ESV(MOD-sp4) 63.0 ml EF(MOD-sp4) 47.1 % EDV(MOD-sp2) 127.0 ml ESV(MOD-sp2) 58.0 ml EF(MOD-sp2) 54.3 % SV(MOD-sp4) 56.0 ml SI(MOD-sp4) 25.4 ml/m\S\2 SV(MOD-sp2) 69.0 ml SI(MOD-sp2) 31.2 ml/m\S\2 Doppler Measurements and Calculations MV E max michelle 92.2 cm/sec MV A max michelle 76.6 cm/sec MV E/A 1.2 MV P1/2t max michelle 100.5 cm/sec MV P1/2t 106.3 msec MVA(P1/2t) 2.1 cm\S\2 MV dec slope 277.1 cm/sec\S\2 MV dec time 0.32 sec Ao V2 max 137.2 cm/sec Ao max PG 7.5 mmHg Ao max PG (full) 1.7 mmHg LV V1 max PG 5.8 mmHg LV V1 max 120.8 cm/sec PA V2 max 83.7 cm/sec PA max PG 2.8 mmHg TR max michelle 163.5 cm/sec
[2017-08-16] MEDS ORDERED: ATORVASTATIN 40 MG TAB PO ONE (10:58)
[2017-08-16 11:06] VITALS: BP 149/80; PULSE 72; TEMP 36.7; O2SAT 91
[2017-08-16 11:36] LABS: PTT PATIENT 36.7 SECONDS (21.0-31.0)
--- NOTE | 2017-08-16 12:14 | NUR ---
pt alert in bed at bedside. reassessed. denies complaints . call zamora in reach will cont to monitor
--- NOTE | 2017-08-16 12:41 | Family Medicine Progress Note ---
Progress Note Date of Service Aug 16, 2017. Subjective Pt evaluation today including: conversation w/ patient, physical exam, chart review, lab review Pain: denies any chest pain currently Voiding: no voiding problems 62-year-old male with significant past medical history presented to the ER with complaints of intermittent, sharp pain underneath his left clavicle which started several weeks ago but had worsened yesterday. Pain is intermittent sometimes at rest and sometimes with exertion. Admitted for cardiac evaluation. States that he feels fine. Denies any pain, shortness of breath, palpitations. Has some paresthesia on the left side of his face which is also intermittent. Denies any numbness, tingling, weakness of any extremities. Denies any fevers, chills, cough. No significant family history of heart disease, no history of hypertension or diabetes but he chews tobacco. Constitutional: No fever, No chills Eyes: No worsening of vision ENT: No hearing loss Respiratory: No cough, No sputum, No wheezing, No shortness of breath Cardiovascular: No chest pain, No orthopnea, No edema Abdomen: No pain, No nausea, No vomiting Musculoskeletal: No joint pain Male : No dysuria, No urinary frequency Neurologic: + problem reported (paresthesias on left side of face which are intermittent) Psychiatric: No depression symptoms Heme: No abnormal bleeding/bruising Medications Current Inpatient Medications Medications (Trade) Dose Ordered Sig/Comfort Route Start Time Stop Time Status Last Admin Dose Admin Ioversol (Optiray 320) 111 ml UD PRN IV 08/15/17 17:30 08/19/17 17:29 Acetaminophen (Tylenol Tab) 650 mg Q4H PRN PO 08/15/17 20:30 09/14/17 20:29 Al Hydrox/Mg Hydrox/Simethicone (Maalox Max Susp) 15 ml Q4H PRN PO 08/15/17 20:30 09/14/17 20:29 Magnesium Hydroxide (Milk Of Magnesia Susp) 30 ml Q12H PRN PO 08/15/17 20:30 09/14/17 20:29 Ondansetron HCl (Zofran Inj) 4 mg Q6H PRN IV 08/15/17 20:30 09/14/17 20:29 Aspirin (Ecotrin Tab) 81 mg QAM PO 08/16/17 09:00 09/15/17 08:59 08/16/17 10:35 81 MG Polyethylene (Miralax Powder Packet) 17 gm DAILY PRN PO 08/15/17 20:30 09/14/17 20:29 Heparin Sodium/ Dextrose 500 ml @ 26 mls/hr [id number] PRN IV 08/15/17 22:15 09/14/17 22:14 08/16/17 04:54 23 MLS/HR Atorvastatin Calcium (Lipitor Tab) 40 mg QAM PO 08/17/17 09:00 09/16/17 08:59 Heparin Sodium (Porcine) 4500 unit/Syringe 4.5 ml @ 10 mls/min NOW ONCE IV 08/16/17 12:30 08/16/17 12:31 Objective Vital Signs Date Time Temp Pulse Resp B/P (MAP) Pulse Ox O2 Delivery O2 Flow Rate FiO2 08/16/17 12:00 Room Air 08/16/17 11:06 36.7 72 18 149/80 (103) 91 2.0 08/16/17 08:00 Room Air 08/16/17 07:39 36.5 68 18 136/75 (95) 96 Room Air 08/16/17 04:10 36.6 70 18 128/77 (94) 95 Room Air 08/16/17 04:00 Room Air 08/15/17 23:59 Room Air 08/15/17 23:08 36.9 72 18 123/76 (92) 96 Room Air 08/15/17 21:45 36.4 69 18 127/81 95 Room Air 08/15/17 21:21 79 18 118/71 95 08/15/17 21:13 70 08/15/17 19:27 89 18 115/71 94 Room Air 08/15/17 17:14 91 17 134/75 96 Room Air 08/15/17 17:03 86 08/15/17 16:06 96 Room Air 08/15/17 16:06 96 Room Air 08/15/17 15:52 37.1 99 16 185/109 91 Room Air Physical Exam General Appearance: WD/WN, no apparent distress Eyes: normal inspection ENT: hearing grossly normal Neck: supple Respiratory/Chest: chest non-tender, lungs clear, normal breath sounds, no respiratory distress Cardiovascular: regular rate, rhythm, no edema Abdomen: normal bowel sounds, non tender, soft Extremities: normal range of motion, non-tender, no pedal edema, no calf tenderness Neurologic/Psychiatric: alert, normal mood/affect, oriented x 3 Laboratory Results 08/16/17 03:30 08/15/17 16:45 Test 08/15/17 16:45 08/15/17 16:53 08/15/17 18:38 08/16/17 03:30 Immature Granulocyte % (Auto) 0.9 % White Blood Count 8.12 K/uL (4.8-10.8) Red Blood Count 5.87 M/uL (4.7-6.1) 5.05 M/uL (4.7-6.1) Hemoglobin 18.4 g/dL (14.0-18.0) Hematocrit 53.1 % (42-52) Mean Corpuscular Volume 90.5 fL (80-100) 92.5 fL (80-100) Mean Corpuscular Hemoglobin 31.3 pg (25-34) 31.5 pg (25-34) Mean Corpuscular Hemoglobin Concent 34.7 g/dl (32-36) 34.0 g/dl (32-36) Platelet Count 267 K/uL (130-400) Mean Platelet Volume 10.1 fL (7.4-10.4) 9.6 fL (7.4-10.4) Neutrophils (%) (Auto) 64.2 % Lymphocytes (%) (Auto) 25.1 % Monocytes (%) (Auto) 6.8 % Eosinophils (%) (Auto) 2.8 % Basophils (%) (Auto) 0.2 % Neutrophils # (Auto) 5.21 K/uL (1.4-6.5) Lymphocytes # (Auto) 2.04 K/uL (1.2-3.4) Monocytes # (Auto) 0.55 K/uL (0.11-0.59) Eosinophils # (Auto) 0.23 K/uL (0-0.5) Basophils # (Auto) 0.02 K/uL (0-0.2) Immature Granulocyte # (Auto) 0.07 K/uL (0.00-0.02) Anion Gap 10.0 mmol/L (3-11) Est Creatinine Clear Calc Drug Dose 83.7 ml/min Estimated GFR () 81.7 Estimated GFR (Non- 70.5 BUN/Creatinine Ratio 17.7 (10-20) Calcium Level 9.2 mg/dl (8.5-10.1) Magnesium Level 2.1 mg/dl (1.8-2.4) Total Bilirubin 0.6 mg/dl (0.2-1) Aspartate Amino Transf (AST/SGOT) 26 U/L (15-37) Alanine Aminotransferase (ALT/SGPT) 37 U/L (12-78) Alkaline Phosphatase 70 U/L (45-117) Total Creatine Kinase 132 U/L (39-308) Creatine Kinase MB 1.3 ng/ml (0.5-3.6) Creatine Kinase MB Ratio 1.0 (0-3.0) Total Protein 8.3 gm/dl (6.4-8.2) Albumin 4.4 gm/dl (3.4-5.0) Globulin 3.9 gm/dl (2.5-4.0) Albumin/Globulin Ratio 1.1 (0.9-2) Lyme Disease IgG Antibody NEG (NEG) Lyme Disease IgM Antibody NEG (NEG) Bedside Troponin I 0.040 ng/ml (0-0.045) Prothrombin Time 10.3 SECONDS (9.0-12.0) Prothromb Time International Ratio 1.0 (0.9-1.1) RDW Standard Deviation 46.4 fL (36.4-46.3) RDW Coefficient of Variation 13.9 % (11.5-14.5) Hepatitis C Antibody Screen NEG (NEG) Test 08/16/17 05:34 08/16/17 11:13 Estimated Average Glucose 108 mg/dl Hemoglobin A1c 5.4 % (4.5-5.6) Triglycerides Level 104 mg/dl (0-150) Cholesterol Level 170 mg/dl (0-200) HDL Cholesterol 28 mg/dl LDL Cholesterol, Calculated 121 mg/dl VLDL Cholesterol, Calculated 21 mg/dl Cholesterol/HDL Ratio 6.1 Activated Partial Thromboplast Time 36.7 SECONDS (21.0-31.0) Partial Thromboplastin Ratio 1.4 Troponin I 0.064 ng/ml (0-0.045) Assessment and Plan 62-year-old male with significant past medical history presented to the ER with complaints of intermittent, sharp pain underneath his left clavicle which started several weeks ago but had worsened yesterday. Pain is intermittent sometimes at rest and sometimes with exertion. Admitted for cardiac evaluation. Precordial chest pain: - Chest x-ray negative, CTA negative for PE. - Troponins trended overnight 0.087-->0.066-->0.067-->0.064 - Echo currently pending - Currently on heparin drip, plan for stress testing tomorrow per cardiology - ASCVD with estimated risk of 17.7%, started on moderate intensity statin- Lipitor 40 mg daily - Continue aspirin 81 mg daily - Lifestyle modifications discussed Moderate bilateral carotid stenosis: - 40% stenosis bilaterally at carotid bifurcations as visualized on CTA - Continue statin Tobacco use: -Counseled about cessation of chewing tobacco, patient would like to try to wean himself. Full code DVT prophylaxis: IV heparin Disposition: Telemetry Resident Physician Supervision Note: I interviewed and examined the patient. Discussed with Dr. Arce and agree with findings and plan as documented in the note. Any exceptions or clarifications are listed here: None Documented By: Fransisco Kilgore had a little bit more neck pain randomly. none since feeling better now vitals noted nad breating unlabored no pallor or icterus EKG noted, troponins noted CP - w slightly elevated troponin and multitude of risks (male, age, tobacco, dyslipidemia) - concern on CAD ---> continue heparin, med management, continue to trend enzymes, start statin. cardiology plan for stress --> cath if positive. certainly if stress negative would still manage for presumed CAD, but would likely simply mean patient doesn't have severe enough disease to benefit from interventions beyond med managemetn and lifestyle. discussed lifestyle as well dyslipid - statin, lifestyle tobacco abuse - cessation DVT proph - anticoagulated otherwise as above Resident Tracking Resident Involvement: Resident Care Provided Care Provided: Adult Hospital Medicine
--- NOTE | 2017-08-16 13:16 | NUR ---
Case Management: Received a discharge planning consult on this pt and I met with him this am. Pt lives with his spouse in a 2 story home. He is completely independent with his care, working and driving. No needs anticipated at this time.
[2017-08-16 15:30] VITALS: BP 152/97; PULSE 73; TEMP 36.5; O2SAT 96
--- NOTE | 2017-08-16 16:00 | NUR ---
A: Vital signs stable, see EMR. SR on diagnostic cardiac sonographer. Patient is on Heparin drip at 26 ml/hr. Patient OOB ad aneesh in room, tolerating well. Denies chest pain, shortness of breath, or dizziness. Call zamora within reach, will continue to monitor.
[2017-08-16 18:53] VITALS: BP 143/90; PULSE 81; TEMP 36.4; O2SAT 94
[2017-08-16 19:29] LABS: PTT PATIENT 38.3 SECONDS (21.0-31.0)
--- NOTE | 2017-08-16 20:00 | NUR ---
a: Full head to toe assessment completed at this time. Patient is alert and oriented x4. Lungs diminished on room air. Denies pain at present. States that sometimes with movement of the left arm, pain represents to the left neck area. Pain then stops when movement of left arm is stopped. SR on monitor. Heparin gtt adjusted per protocol. Denies needs. Refusing SCDs. No edema. Voiding in urinal. No needs are voiced at present time. Refer to EMR for full assessment details. Call zamora and bedside table are within reach. Will continue to monitor patient closely.
[2017-08-16 23:55] VITALS: BP 164/101; PULSE 78; TEMP 36.7; O2SAT 95
--- NOTE | 2017-08-17 00:01 | NUR ---
a: Reassessed. Patient up to bathroom to complete PM care independently. IV Heparin infusing per protocol. Denies pain. SR on monitor. Refer to EMR for full assessment details. Call zamora and bedside table are within reach. Will continue to monitor.
[2017-08-17 00:10] VITALS: BP 157/93
[2017-08-17 03:08] LABS: PTT PATIENT 52.2 SECONDS (21.0-31.0)
--- NOTE | 2017-08-17 04:00 | NUR ---
a: Reassessment completed at this time. Resting well. No complaints. Refer to EMR for full assessment details. Call zamora and bedside table are within reach. Will continue to monitor patient closely.
[2017-08-17 04:36] VITALS: BP 124/77; PULSE 61; TEMP 36.6; O2SAT 93
--- NOTE | 2017-08-17 05:00 | NUR ---
Slight change noted on monitor to T-waves. Appeared to be more peaked than previously. EKG obtained. Patient has no symptoms. No change noted on EKG. Will continue to monitor.
[2017-08-17 07:23] VITALS: BP 137/86; PULSE 66; TEMP 36.6; O2SAT 94
--- NOTE | 2017-08-17 08:00 | NUR ---
A:id patient alert in room, eating breakfast. at time of assessment, pt was already finished with tray- informed pt of npo status - dr nunez is aware that patient ate. okayed stress test at this time. plan is for patient to return home @d/c . currently no complaints. call zamora in reach will cont to monitor.
[2017-08-17] MEDS: ASPIRIN 81 MG ECTAB PO SCH (08:27)
[2017-08-17] MEDS ORDERED: ATORVASTATIN 40 MG TAB PO SCH (09:00)
--- NOTE | 2017-08-17 09:15 | NUR ---
pt to cpl for stress test
--- NOTE | 2017-08-17 10:30 | EXERCISE STRESS ECHO ---
*NOTICE TO RECEIVING [employer] This information is strictly Confidential and protected under [place] law. [place] law prohibits you from making any further disclosure of this information unless further disclosure is expressly permitted by the written consent of the person to whom it pertains or is authorized by law. A general authorization for the release of medical or other information is not sufficient for this purpose. Hospital accepts no responsibility if the information is made available to any other person, INCLUDING THE PATIENT. Interpretation Summary * Name: VASU DIAL Study Date: 08/17/2017 09:25 AM BP: 147/95 mmHg * Patient Location: C.2T\S\S240\S\2 HR: 76 * : 1955 (M/d/yyyy) Gender: Male Height: 69 in * Age: 62 yrs Ethnicity: [place] Weight: 233 lb * Ordering Physician: Agustín Moore * Referring Physician: Self, Referred * Performed By: Donya Gamez RCS * * Reason For Study: CHEST PAIN * BSA: 2.2 m2 * -- Conclusions -- * Normal exercise echocardiogram without evidence of inducible ischemia * Hypertensive response to exercise Procedure Details * ECHOEX, CPT #19826 Left Ventricular Findings with Stress * Normal exercise echocardiogram without evidence of inducible ischemia Hypertensive response to exercise Left Ventricle * The left ventricle is grossly normal size. * Left ventricular systolic function is normal. * The left ventricular wall motion is normal at rest. Stress Parameters * Normal sinus rhythm with right bundle-branch block * Stress ECG: No ST changes. No arrhythmias. * The stress portion of this study was personally supervised by the undersigned interpreting physician. * Rest heart rate was '76' BPM. * Rest blood pressure was '147/95' * Maximum heart rate achieved was 157 bpm. * Maximum heart rate was 98 % of maximum age-predicted heart rate. * Maximum blood pressure was '222/95' * Total exercise time was '6:01' * Maximum exercise MET level achieved was '7.0' METS * Maximum treadmill speed was '2.5' miles per hour. * Maximum treadmill elevation was '12'% grade. * Exercise was terminated due to 'fatigue after achieving target heart rate' Left Ventricular Findings with Stress * Baseline EKG was sinus rhythm with right bundle branch block There are no significant ST or T-wave changes noted during exercise recovery Baseline echocardiographic images demonstrated normal LV function and wall motion There was normal augmentation of all see without development of wall motion abnormalities at peak exertion No symptoms of chest pain reported during the test There was a hypertensive response to exercise Keith treadmill score: 6 (low risk)
--- NOTE | 2017-08-17 10:30 | NUR ---
pt returned from stress test. no complaints. at bedside awaiting discharge.
[2017-08-17 11:32] VITALS: BP 134/85; PULSE 71; TEMP 36.7; O2SAT 94
[2017-08-17] MEDS ORDERED: LPT40 PO (11:41)
[2017-08-17] MEDS ORDERED: ASPI-320 PO (11:41)
--- NOTE | 2017-08-17 11:49 | Discharge Instructions ---
Discharge Instructions Date of Service Aug 17, 2017. Admission Reason for Admission: Chest Pain Discharge Discharge Diagnosis / Problem: Precordial chest pain Discharge Goals Goal(s): Decrease discomfort, Improve function Activity Recommendations Activity Limitations: resume your previous activity . Instructions / Follow-Up Instructions / Follow-Up You were admitted with chest pain under your left clavicle and evaluated for chest pain. You were monitored with serial cardiac enzymes and continuos telemetry monitoring . You had a stress test which was unremarkable. 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 - Recommend healthy lifestyle modifications with increased intake of fruits and vegetables, adequate exercise. You are recommended to quit chewing tobacco as it increases your risk for heart disease. Follow up with Dr. White in about a week Current Hospital Diet Patient's current hospital diet: AHA Diet (Heart Healthy) Discharge Diet Recommended Diet: AHA Diet (Heart Healthy) Procedures Procedures Performed: Stress echo Pending Studies Studies pending at discharge: no Laboratory Results Hemoglobin A1c Test 08/16/17 05:34 Range/Units Estimated Average Glucose 108 mg/dl Hemoglobin A1c 5.4 4.5-5.6 % Lipid Panel Test 08/16/17 05:34 Range/Units Triglycerides Level 104 0-150 mg/dl Cholesterol Level 170 0-200 mg/dl HDL Cholesterol 28 mg/dl Cholesterol/HDL Ratio 6.1 LDL Cholesterol, Calculated 121 mg/dl Medical Emergencies . Who to Call and When: Medical Emergencies: If at any time you feel your situation is an emergency, please call 911 immediately. . Non-Emergent Contact Non-Emergency issues call your: Primary Care Provider . . "Provider Documentation" section prepared by Layla Arce. . VTE Core Measure Inpt VTE Proph given/why not?: Other Anticoagulation (IV Heparin Standard), SCD 's Resident Tracking Resident Involvement: Resident Care Provided Care Provided: Adult Hospital Medicine
--- NOTE | 2017-08-17 11:50 | Discharge Summary ---
Discharge Summary Date of Service Aug 17, 2017. Discharge Summary Admission Date: Aug 15, 2017 at 20:38 Discharge Date: Aug 17, 2017 Discharge Disposition: Home Principal Diagnosis: precordial chest pain Immunizations: Have You Had Influenza Vaccine: Unknown History of Tetanus Vaccine?: Unknown History of Pneumococcal: Unknown History of Hepatitis B Vaccine: Unknown Consultations: Cardiology Medication Reconciliation New Medications: Aspirin (Aspirin EC Low Dose) 81 Mg Ectab 81 MG PO QAM, #30 Atorvastatin (Atorvastatin Calcium) 40 Mg Tab 40 MG PO QAM, #30 TAB Discontinued Medications: Aspirin (Aspirin Ec) 325 Mg Tab 650 MG PO BID Discharge Exam Doing well. Has intermittent episodes of paresthesias along the left face but denies any chest pain, shortness of breath, palpitations Review of Systems: Constitutional: No fever, No chills Eyes: No worsening of vision ENT: No hearing loss Respiratory: No cough, No sputum Cardiovascular: No chest pain Abdomen: No pain, No nausea Musculoskeletal: No joint pain Genitourinary - Male: No hematuria, No dysuria Neurologic: No memory loss Psychiatric: No depression symptoms Physical Exam: General Appearance: WD/WN, no apparent distress Eyes: normal inspection ENT: normal ENT inspection, hearing grossly normal Neck: supple Respiratory/Chest: chest non-tender, lungs clear, normal breath sounds Cardiovascular: regular rate, rhythm, no edema Abdomen / GI: normal bowel sounds, non tender, soft Extremities: normal inspection, no pedal edema Neurologic/Psychiatric: alert, normal mood/affect, oriented x 3 Skin: normal color Hospital Course 62-year-old male with no significant past medical history presented to the ER with complaints of intermittent, sharp pain underneath his left clavicle which started several weeks ago but had worsened yesterday. Pain is intermittent sometimes at rest and sometimes with exertion. Initial chest x-ray, CTA were negative. EKG revealed RBBB and initial troponin was 0.087. He was admitted for cardiac evaluation and troponins were trended which have been stable around 0.06. He was maintained on heparin drip and cardiology was consulted. Echo was unremarkable, he was monitored with troponins and a stress echo was performed on the day of discharge which did not reveal any inducible ischemia. 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 His ASCVD risk estimate was 17.7% and he was started on 81 mg aspirin daily and a moderate intensity statin(Lipitor 40 mg daily) Counseled about cTessation of chewing tobacco. He is to follow up with his PCP in about a week Total Time Spent: Greater than 30 minutes This includes examination of the patient, discharge planning, medication reconciliation, and communication with other providers. Discharge Instructions Please refer to the electronic Patient Visit Report (Discharge Instructions) for additional information.
--- NOTE | 2017-08-17 12:00 | NUR ---
discharge instructions reviewed with patient, and . no needs at this time. iv d/c'd intact. refused transport to private vehicle. ambulated to elevators with steady gait.
[2017-08-17 12:17] VITALS: BP 134/85; PULSE 71; TEMP 36.7; O2SAT 94
--- NOTE | 2017-08-20 12:33 | EDITING REQUIRED CODING QUERY ---
CHEST PAIN To promote full compliance with coding requirements relating to patient care physician participation is requested in all cases of hcc coders uncertainty. Please assist us with the question(s) below: Please list a more specific chest pain diagnosis or cause of chest pain if known by placing an X within the parenthesis (x): (X ) Atypical Chest Pain ( ) Chest Wall Pain ( ) Midsternal Chest Pain ( ) Musculoskeletal Chest Pain ( ) Pleuritic Chest Pain ( ) Substernal Chest Pain ( ) Costochondral Chest Pain ( ) Other (please Specify) ( ) Unable to Determine Thank you Vj BARAJAS CCS
== END 2017-08-17 12:34 | disposition home or self-care (01) | DRG 313 ==
LOC: C.EDB 15:50 → C.2T 20:38 → ENRESERV 21:15
PROVIDERS: ADMIT Hospitalist; ATTEND Hospitalist
DX: R07.89 Other chest pain (principal); F17.220 Nicotine dependence, chewing tobacco, uncomplicated; I65.23 Occlusion and stenosis of bilateral carotid arteries; J45.909 Unspecified asthma, uncomplicated; I71.2 Thoracic aortic aneurysm, without rupture

== ENCOUNTER → 2017-09-09 | Outpatient (CLI) | payer OTHER ==
[~2017-09-09] MED LIST: ASPEC81 PO; LPT40 PO
[2017-09-09 15:14] LABS: BASO % 0.5 %; BASO ABS # 0.04 K/uL (0-0.2); EOS % 1.5 %; EOS ABS # 0.13 K/uL (0-0.5); HEMATOCRIT 49.3 % (42-52); HEMOGLOBIN 17.5 g/dL (14.0-18.0); IG# 0.02 K/uL (0.00-0.02); LYMPH % 23.8 %; LYMPH ABS # 2.05 K/uL (1.2-3.4); MEAN CELL VOLUME 91.1 fL (80-100); MEAN CORPUSCULAR HEMOGLOBIN 32.3 pg (25-34); MEAN CORPUSCULAR HGB CONC 35.5 g/dl (32-36); MEAN PLATELET VOLUME 9.7 fL (7.4-10.4); MONO % 7.3 %; MONO ABS # 0.63 K/uL (0.11-0.59); NEUT % 66.7 %; NEUT ABS # 5.73 K/uL (1.4-6.5); PLATELET COUNT 263 K/uL (130-400); RED CELL DISTRIBUTION WIDTH CV 13.5 % (11.5-14.5)
== END | disposition home or self-care (01) ==
LOC: C.LAB1850 14:32
PROVIDERS: ATTEND Physician Assistant Medical

== ENCOUNTER → 2017-10-02 | Outpatient (CLI) | payer OTHER ==
--- NOTE | 2017-10-02 14:51 | DIAGNOSTIC IMAGING REPORT ---
CHEST 2 VIEWS ROUTINE CLINICAL HISTORY: R05 [id number] cough. Dyspnea. COMPARISON STUDY: 08/15/2017 FINDINGS: The bones soft tissues and hemidiaphragms are normal. The cardiomediastinal silhouette is normal. The lungs are clear. The pulmonary vasculature is normal. IMPRESSION: Negative chest. The above report was generated using voice recognition software. It may contain grammatical, syntax or spelling errors. Electronically signed by: Jamal Conner M.D. 10/02/2017 2:50 PM Dictated Date/Time: 10/02/2017 2:49 PM
== END | disposition home or self-care (01) ==
LOC: C.RAD1850 14:42
PROVIDERS: ATTEND Physician Assistant Medical
DX: R05 Cough (principal)

== ENCOUNTER → 2017-10-02 | Outpatient (CLI) | payer OTHER ==
[2017-10-02 16:11] LABS: INFLUENZA B ANTIGEN Neg for Influ B (NEG)
== END | disposition home or self-care (01) ==
LOC: C.LAB1850 15:12
PROVIDERS: ATTEND Physician Assistant Medical
DX: R05 Cough (principal); R68.89 Other general symptoms and signs

== ENCOUNTER → 2017-12-04 | Outpatient (CLI) | payer OTHER ==
[~2017-12-04] MED LIST changes: -ASPEC81 PO; +ASPI-320 PO
== END | disposition home or self-care (01) ==
LOC: C.LAB1850 13:10
PROVIDERS: ATTEND Internal Medicine Cardiovascular Disease
DX: E78.00 Pure hypercholesterolemia, unspecified (principal)